=== PATIENT | male | born 1995 | race Caucasian/White ===

== ENCOUNTER → 2021-06-09 | Emergency (ER) | payer BC ==
[~2021-06-09] VITALS: Ht 170.2 cm; Wt 73.5 kg
[~2021-06-09] MED LIST: NAPR-1164 PO; NAPROXEN 250 MG TABLET ONE; NAPROXEN 500 MG TABLET PO SCH
--- NOTE | 2021-06-09 02:00 | NUR ---
patient in bed 1. c/o left elbow pain. a/ox4. states feel off electric scooter.
--- NOTE | 2021-06-09 02:11 | NUR ---
xray at bedside
--- NOTE | 2021-06-09 02:11 | NUR ---
RAD AT BEDSIDE
--- NOTE | 2021-06-09 03:58 | NUR ---
DAMION PAGED, WILL INPUT STAT ALERT
--- NOTE | 2021-06-09 04:30 | NUR ---
emt placed splint
--- NOTE | 2021-06-09 05:15 | NUR ---
Patient discharged to home in stable condition. Written and verbal after care instructions given. Patient verbalizes understanding of instruction. rx given. excuse from work note given. ambulated out of ER
[2021-06-09 05:16] VITALS: BP 132/90
== END | disposition home or self-care (01) ==
LOC: ER 01:32
DX: S52.135A Nondisplaced fracture of neck of left radius, initial encounter for closed fracture (principal); F12.90 Cannabis use, unspecified, uncomplicated; V00.831A Fall from motorized mobility scooter, initial encounter; Y93.89 Activity, other specified; Y92.89 Other specified places as the place of occurrence of the external cause; Y99.8 Other external cause status
CPT/HCPCS: 73060-TC; 73080-TC; 73090-TC